=== PATIENT | female | born 1975 | race Asian ===

== ENCOUNTER 2018-11-19 04:09 | Emergency (ER) | payer SELFPAY ==
[~2018-11-19] VITALS: Ht 162.6 cm; Wt 61.2 kg
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
--- NOTE | 2018-11-19 04:26 | NUR ---
Pt ambulatory w/ steady gait to restroom, resp even & unlabored, nad noted.
--- NOTE | 2018-11-19 04:46 | NUR ---
Pt sent to CT via [facility] w/ resp even & unlabored, nad noted.
--- NOTE | 2018-11-19 05:03 | NUR ---
[employer] officers at bedside talking w/ pt.
--- NOTE | 2018-11-19 05:27 | NUR ---
Pt assisted to restroom by friend, resp even & unlabored, nad noted.
[2018-11-19] MEDS ORDERED: IBUPROFEN 400 MG TABLET PO ONE (05:30)
[2018-11-19] MEDS ORDERED: IBUPROFEN 400 MG TABLET ONE (05:32)
--- NOTE | 2018-11-19 05:34 | NUR ---
pt medicated as ordered for continued midsternal cp.
--- NOTE | 2018-11-19 05:41 | NUR ---
Pt medically cleared by Dr. Livingston and discharged to home in stable condition. Patient discharged to home in stable condition. Written and verbal after care instructions given along w/ prescriptions. Patient instructed not to drive while on pain medications. Patient verbalizes understanding of instruction.
[2018-11-19 05:44] VITALS: BP 99/64
== END 2018-11-19 05:41 | disposition home or self-care (01) ==
LOC: ER 04:11
DX: S20.219A Contusion of unspecified front wall of thorax, initial encounter (principal); S40.211A Abrasion of right shoulder, initial encounter; Z59.0 Homelessness; V47.6XXA Car passenger injured in collision with fixed or stationary object in traffic accident, initial encounter; Y93.89 Activity, other specified; Y92.413 State road as the place of occurrence of the external cause; Y99.8 Other external cause status
CPT/HCPCS: 71250; 99284; A4606; Z7610